=== PATIENT | male | born 1960 | race Caucasian/White ===

== ENCOUNTER 2022-02-08 08:55 | Emergency (ER) | payer OTHER ==
[2022-02-08] MEDS ORDERED: Sodium Chloride 0.9% 2.5 ML Syringe FLUSH PRN (08:59)
[2022-02-08] MEDS ORDERED: Sodium Chloride 0.9% 10 ML Syringe FLUSH PRN (08:59)
[2022-02-08] MEDS ORDERED: Sodium Chloride 0.9% 1,000 ML IV ONE (09:35)
[2022-02-08 09:48] LABS: BLOOD UREA NITROGEN,BUN 10 mg/dL (7.0-18.0); CARBON DIOXIDE,CO2 24.5 mmol/L (21.0-32.0); CHLORIDE,CL 96 mmol/L (98-107); GLUCOSE RANDOM 130 mg/dL (74-106); POTASSIUM,K 3.3 mmol/L (3.5-5.1); SODIUM,NA 133 mmol/L (136-148)
[2022-02-08] MEDS ORDERED: Ketorolac 30 MG/ML SDV IVPUSH ONE (10:39)
[2022-02-08] MEDS ORDERED: Iopamidol 755 MG/ML 500 ML Multipack Bottle IVPUSH STA (11:58)
== END 2022-02-08 13:45 | disposition home or self-care (01) ==
LOC: MW.ED 08:55
DX: C34.90 Malignant neoplasm of unspecified part of unspecified bronchus or lung (principal); R07.89 Other chest pain
CPT/HCPCS: 36415; 71045; 71275; 80053; 84484; 85025; 85379; 93005; 96374; 99285; J1885; J3490; J7030; Q9967

== ENCOUNTER 2022-10-04 12:46 | Emergency (ER) | payer OTHER ==
[2022-10-04] MEDS ORDERED: Lactated Ringers 1,000 ML IV STA ×3 (14:02→17:43)
[2022-10-04 15:21] LABS: CARBON DIOXIDE,CO2 23.3 mmol/L (21.0-32.0); POTASSIUM,K 3.8 mmol/L (3.5-5.1)
[2022-10-04] MEDS ORDERED: Magnesium Sulfate/Water 2 GM in Premix Bag 1 BAG IV ONE (15:33)
[2022-10-04 17:31] LABS: CORONAVIRUS COVID-19 NAA NEGATIVE (NEGATIVE); INFLUENZA A NAA NEGATIVE (NEGATIVE); INFLUENZA B NAA NEGATIVE (NEGATIVE); RESPIRATORY SYNCYTIAL VIR NAA NEGATIVE (NEGATIVE)
[2022-10-04] MEDS ORDERED: Sodium Chloride 0.9% 1,000 ML IV ONE (17:45)
[2022-10-04] MEDS ORDERED: Heparin Sodium 100 Units/ML 3 ML Syringe ONE (20:08)
[2022-10-04] MEDS ORDERED: Heparin Sodium 100 Units/ML 3 ML Syringe FLUSH STA (20:09)
== END 2022-10-04 20:10 | disposition home or self-care (01) ==
LOC: MW.ED 12:46
DX: E86.0 Dehydration (principal); R19.7 Diarrhea, unspecified; E87.1 Hypo-osmolality and hyponatremia; E83.42 Hypomagnesemia; F17.210 Nicotine dependence, cigarettes, uncomplicated; Z20.822 Contact with and (suspected) exposure to COVID-19; Z86.73 Personal history of transient ischemic attack (TIA), and cerebral infarction without residual deficits
CPT/HCPCS: 0241U; 36415; 71045; 80053; 82550; 83605; 83735; 84443; 85025; 85610; 87040; 93005; 96361; 96365; 96366; 96375; 99284; J1642; J3475; J7030; J7120; 93010

== ENCOUNTER 2022-10-22 00:05 | Emergency (ER) | payer OTHER ==
[2022-10-22] MEDS ORDERED: Lactated Ringers 1,000 ML IV ONE ×2 (00:55→02:16)
[2022-10-22 01:15] LABS: CARBON DIOXIDE,CO2 26.7 mmol/L (21.0-32.0); POTASSIUM,K 3.5 mmol/L (3.5-5.1)
== END 2022-10-22 03:58 | disposition home or self-care (01) ==
LOC: MW.ED 00:05
DX: E86.0 Dehydration (principal); R19.7 Diarrhea, unspecified; Z72.0 Tobacco use; Z88.8 Allergy status to other drugs, medicaments and biological substances
CPT/HCPCS: 36415; 80053; 85025; 96360; 96361; 99284; J7120; 99283